=== PATIENT | female | born 1950 | race Hispanic/Latino ===

== ENCOUNTER 2020-03-23 10:55 | Emergency (ER) | payer MEDICARE ==
[~2020-03-23] VITALS: Ht 157.5 cm; Wt 72.6 kg
[2020-03-23] MEDS ORDERED: HYDROCODONE/APAP 5MG-325MG TAB PO ONE (11:30)
--- NOTE | 2020-03-23 11:33 | Emergency Department Note ---
History of Present Illnes History of Present Illness Chief Complaint: Extremity Trauma/Pain History of Present Illness This is a 69 year old female s/p fall yesterday on L wrist. . Historian: Patient Arrival Mode: Car Head Waiter Required: No Onset (how long ago): day(s) (1) Radiation: Reports extremity Severity: mild Onset quality: sudden Duration (how long): day(s) (1) Timing of current episode: constant Progression: unchanged Chronicity: new Context: Reports trauma/injury Relieving factors: immobilization, rest Exacerbating factors: movement Treatments prior to arrival: none Past Medical/Family History Physician Review I have reviewed the patient's past medical and family history. Any updates have been documented here. Past Medical History Recent Fever: No Clinical Suspicion of Infectio: No New/Unexplained Change in Ment: No Other Medical History: Raynauds Dz Past Surgical History: None Social History Smoking Cessation: Never Smoker Alcohol Use: None Any Illegal Drug Use: No Review of Systems Review of Systems Constitutional: Reports no symptoms EENTM: Reports no symptoms Cardiovascular: Reports no symptoms Respiratory: Reports no symptoms Gastrointestinal: Reports no symptoms Genitourinary: Reports no symptoms Musculoskeletal: Reports joint pain Integumentary: Reports no symptoms Neurological: Reports no symptoms Psychological: Reports no symptoms Endocrine: Reports no symptoms Hematological/Lymphatic: Reports no symptoms Physical Exam Related Data Allergies: Coded Allergies: No Known Allergies (Unverified , 03/23/20) Triage Vital Signs Vital Signs Date Time Temp Pulse Resp B/P (MAP) Pulse Ox O2 Delivery O2 Flow Rate FiO2 03/23/20 11:27 98.5 90 16 138/82 91 Room Air Vital signs reviewed: Yes Physical Exam CONSTITUTIONAL Constitutional: Present well-developed, Present well-nourished HENT HENT: Present normocephalic, Present atraumatic, Present oropharynx clear/moist, Present nose normal HENT L/R: Present left ext ear normal, Present right ext ear normal EYES Eyes: Reports PERRL, Reports conjunctivae normal NECK Neck: Present ROM normal PULMONARY Pulmonary: Present effort normal, Present breath sounds normal CARDIOVASCULAR Cardiovascular: Present regular rhythm, Present heart sounds normal, Present capillary refill normal, Present normal rate GASTROINTESTINAL Abdominal: Present soft, Present nontender, Present bowel sounds normal GENITOURINARY Genitourinary: Present exam deferred SKIN Skin: Present warm, Present dry MUSCULOSKELETAL Musculoskeletal: Present tenderness, Present other (left distal FA deformity. L hand edema) NEUROLOGICAL Neurological: Present alert, Present oriented x 3, Present no gross motor or sensory deficits PSYCHOLOGICAL Psychological: Present mood/affect normal, Present judgement normal Results Imaging Imaging results reviewed: Yes Impressions [facility] [address] [address] Patient Name: KWAKU CARDENAS MR #: [id number] : 1950 Age/Sex: 69/F Req #: [id number] Adm Physician: Ordered by: KASHIF العراقي DO Report #: [id number] Location: ER Room/Bed: Procedure: [id number] DX/WRIST COMPLETE LEFT Exam Date: Exam Time: REPORT STATUS: Signed Left wrist, 3 views INDICATION: ^wrist pain Comparison: None available. Discussion: There is focal soft tissue swelling about the dorsum of the wrist with a small fracture fragment identified measuring approximately 5 mm in greatest dimension. There is overlying soft tissue swelling. Negative for dislocation or malalignment of the wrist joint. Mild narrowing of the radiocarpal joint space is noted. Mild degenerative change of the first carpometacarpal joint is noted. Negative for radiopaque foreign body within the overlying soft tissues. IMPRESSION: Small 5 mm fracture fragment within the dorsal aspect of the wrist is most consistent with a triquetral chip fracture. Overlying soft tissue swelling is noted. Signed by: Damien Dyson MD on 03/23/2020 12:55 PM Dictated By: DAMIEN DYSON MD [id number] Transcribed By: SUNNI on 03/23/20 1257 COPY TO: KASHIF العراقي DO~ Assessment & Plan Medical Decision Making MDM Diff Dx : fx, dislocation, contusion, sprain, strain, osteomyelitis, cellul itis, wound Reassessment Reassessment time: 13:43 Assessment & Plan Final Impression: (1) Triquetral chip fracture Last Vital Signs Date Time Temp Pulse Resp B/P (MAP) Pulse Ox O2 Delivery O2 Flow Rate FiO2 03/23/20 11:27 98.5 90 16 138/82 91 Room Air Medications in the ED Acetaminophen/ Hydrocodone Bitart 1 ea ONCE ONCE PO Last administered on 03/23/20at 12:10; Admin Dose 1 EA; Start 03/23/20 at 11:30; Stop 03/23/20 at 11:33; Status DC KASHIF العراقي DO Mar 23, 2020 11:33
--- NOTE | 2020-03-23 12:58 | Diagnostic Imaging Report ---
Left wrist, 3 views INDICATION: ^wrist pain Comparison: None available. Discussion: There is focal soft tissue swelling about the dorsum of the wrist with a small fracture fragment identified measuring approximately 5 mm in greatest dimension. There is overlying soft tissue swelling. Negative for dislocation or malalignment of the wrist joint. Mild narrowing of the radiocarpal joint space is noted. Mild degenerative change of the first carpometacarpal joint is noted. Negative for radiopaque foreign body within the overlying soft tissues. IMPRESSION: Small 5 mm fracture fragment within the dorsal aspect of the wrist is most consistent with a triquetral chip fracture. Overlying soft tissue swelling is noted. Signed by: Carlin Dyson MD on 03/23/2020 12:55 PM
== END 2020-03-23 15:00 | disposition home or self-care (01) ==
LOC: ER 11:20
DX: S62.112A Displaced fracture of triquetrum [cuneiform] bone, left wrist, initial encounter for closed fracture (principal); W18.30XA Fall on same level, unspecified, initial encounter; Y92.008 Other place in unspecified non-institutional (private) residence as the place of occurrence of the external cause; I73.00 Raynaud's syndrome without gangrene
CPT/HCPCS: 99283